=== PATIENT | male | born 1960 | race Caucasian/White ===

== ENCOUNTER 2018-08-01 11:56 | Emergency (ER) | payer SELFPAY ==
[2018-08-01] MEDS ORDERED: ASPIRIN 81 MG CHEWABLE TAB PO ONE (12:40)
[2018-08-01 12:54] LABS: PLATELET COUNT 208 10^3/uL (150-400)
--- NOTE | 2018-08-01 13:50 | EDPHY ---
H & P Stated Complaint: chest pain Time Seen by Provider: 08/01/18 12:57 HPI/ROS: CHIEF COMPLAINT: Chest pain HISTORY OF PRESENT ILLNESS: 58-year-old male presents with chest pain. Onset of chest pain 1 week ago. The pain is constant and waxes and wanes. Chest pain is rated 1/10-3/10, and never completely resolves. Relieved with Tums over the counter transiently. Associated with slight nausea. No clear association with eating. He walks regularly and does not have chest pain with exertion. Cardiac risk factors negative. Nonsmoker; no family history; no hypertension, diabetes or hypercholesterolemia. REVIEW OF SYSTEMS: complete 10 point ROS reviewed and is negative except for the noted elements in the HPI - Personal History Current Tetanus/Diphtheria Vaccine: Unsure Current Tetanus Diphtheria and Acellular Pertussis (TDAP): Unsure - Medical/Surgical History Hx Asthma: No Hx Chronic Respiratory Disease: No Hx Diabetes: No Hx Cardiac Disease: No Hx Renal Disease: No Hx Cirrhosis: No Hx Alcoholism: No Hx HIV/AIDS: No Hx Splenectomy or Spleen Trauma: No Other PMH: UTI - Social History Smoking Status: Never smoked Alcohol Use: Sober Drug Use: None - Physical Exam Exam: General Appearance: Alert, pleasant Eyes: Pupils equal and round, no conjunctival pallor or injection ENT, Mouth: Mucous membranes moist Neck: Normal inspection Respiratory: Lungs are clear to auscultation Cardiovascular: Regular rate and rhythm Gastrointestinal: Abdomen is soft, mild epigastric tenderness Neurological: A&O, nonfocal, normal gait Skin: Warm and dry, no rash Extremities: Nontender, no pedal edema Psychiatric: Mood and affect normal Constitutional: Initial Vital Signs Temperature (C) 36.4 C 08/01/18 12:00 Heart Rate 56 L 08/01/18 12:00 Respiratory Rate 16 08/01/18 12:00 Blood Pressure 141/79 H 08/01/18 12:00 O2 Sat (%) 98 08/01/18 12:00 O2 Delivery Mode Room Air O2 (L/minute) 2 Allergies/Adverse Reactions: No Known Allergies Allergy (Unverified 08/01/18 12:00) Home Medications: Medication Instructions Recorded Pantoprazole Sodium [Protonix 40mg 40 mg PO DAILY #20 tab 08/01/18 (*)] Medical Decision Making - Diagnostics EKG Interpretation: EKG interpreted by me reveals normal sinus rhythm, rate 51, abnormal R-wave progression, no ST or T segment changes. Interpretation: Abnormal EKG Imaging Results: Chest x-ray independently reviewed by me reveals no acute disease. Imaging: Discussed imaging studies w/ gunner's mate Radiologist ED Course/Re-evaluation: This patient presents with a one-week history persistent chest pain. Stat EKG reveals no evidence ischemia or dysrhythmia and initial troponin is normal. Clinical presentation most strongly suggests esophagitis/GERD. I doubt acute coronary syndrome, given the prolonged and mild nature of this discomfort, without exertional component. Protonix 40 mg orally given. Heart score is 1 for age. Shared decision-making, pt would like to go home with outpt cardiac f/ u. I feel that he is safe and stable for discharge home. Warning signs discussed. Differential Diagnosis: Differential diagnosis includes though it is not limited to pneumonia, pneumothorax, pulmonary embolism, aortic dissection, pericarditis, acute coronary syndrome, GERD, PUD. - Data Points Laboratory Results: Laboratory Results 08/01/18 12:44 08/01/18 12:44 Medications Given: Discontinued Medications Aspirin (Aspirin) 324 mg PO EDNOW ONE Stop: 08/01/18 12:41 Last Admin: 08/01/18 12:42 Dose: 324 mg Pantoprazole Sodium (Protonix) 40 mg PO EDNOW ONE Stop: 08/01/18 13:55 Last Admin: 08/01/18 14:04 Dose: 40 mg Point of Care Test Results: Chemistry 08/01/18 12:46 POC Troponin I 0.00 ng/mL ng/mL (0.00-0.08) Departure - Departure Disposition: Home, Routine, Self-Care Clinical Impression: Esophagitis Chest pain Qualifiers: Chest pain type: precordial pain Qualified Code(s): R07.2 - Precordial pain Condition: Good Instructions: Chest Pain (ED), Esophagitis (ED) Additional Instructions: Take Maalox or Mylanta 30 min before meals and at bedtime. Take Protonix as prescribed. Return for worsening symptoms or any concerns. Follow-up with your primary care physician. Call to make an appointment with a patch worker. Referrals: Tierney Zaidi MD [Medical Doctor] - As per Instructions (Call to make an appointment.) Prescriptions: Pantoprazole Sodium [Protonix 40mg (*)] 40 mg PO DAILY #20 tab
[2018-08-01] MEDS ORDERED: PANTOPRAZOLE SODIUM 40 MG TAB PO ONE (13:54)
[2018-08-01 14:09] VITALS: BP 110/79
--- NOTE | 2018-08-01 16:38 | CPEKG ---
Test Reason : OPEN Blood Pressure : / mmHG Vent. Rate : 051 BPM Atrial Rate : 051 BPM P-R Int : 145 ms QRS Dur : 098 ms QT Int : 450 ms P-R-T Axes : -07 -65 064 degrees QTc Int : 415 ms Sinus rhythm LAD, consider left anterior fascicular block Abnormal R-wave progression, early transition Confirmed by Christine Hess ([id number] on 08/01/2018 4:38:00 PM Referred By: Confirmed By:Christine Hess
== END 2018-08-01 14:07 | disposition home or self-care (01) ==
DX: K20.9 Esophagitis, unspecified (principal); R07.2 Precordial pain
CPT/HCPCS: 84484-ER